=== PATIENT | male | born 1985 | race Asian ===

== ENCOUNTER 2018-06-05 17:36 | Emergency (ER) | payer OTHER ==
[~2018-06-05] VITALS: Ht 175.3 cm; Wt 85.3 kg
[2018-06-05 17:42] VITALS: BP 131/73; Ht 175.3 cm; Wt 85.3 kg
== END 2018-06-05 17:50 | disposition left against medical advice (07) ==
LOC: ED 17:36
DX: Z53.21 Procedure and treatment not carried out due to patient leaving prior to being seen by health care provider (principal)